=== PATIENT | female | born 1985 | race Caucasian/White ===

== ENCOUNTER → 2016-06-20 | Outpatient (CLI) | payer BC | END | disposition home or self-care (01) | LOC: C.PAPS 16:05 | PROVIDERS: ATTEND Obstetrics & Gynecology | DX: Z01.419 Encounter for gynecological examination (general) (routine) without abnormal findings (principal) ==

== ENCOUNTER → 2017-06-26 | Outpatient (CLI) | payer BC | END | disposition home or self-care (01) | LOC: C.PAPS 16:03 | PROVIDERS: ATTEND Physician Assistant | DX: Z01.419 Encounter for gynecological examination (general) (routine) without abnormal findings (principal) ==

== ENCOUNTER 2021-10-27 22:18 | Inpatient (IN) ==
--- NOTE | 2021-10-27 22:58 | History & Physical Report ---
Date of Service October 27, 2021 Assessment & Plan (1) Uterine contractions: (2) 39 weeks gestation of : Plan no evidence of active labor. fhts categ 1. will reeval in 2hr for labor progress. History of Present Illness Chief Complaint: contractions Primary Care Provider: Andrea Cm DO 35yo at 39wks ega presents to L&D with above cc. Called with painful ctx q 3min at home. No rom. No vb. +FM PNC uncomplicated PNL rh pos, ri, gbs neg OBH: g1 Allergies Allergy/AdvReac Type Severity Reaction Status Date / Time No Known Allergies Allergy Verified 10/21/21 09:46 Home Medications Medication Instructions Recorded Confirmed Type prenat.vits,monster,kye-tnqz-jjaon 1 tab PO DAILY 04/02/21 10/27/21 History Patient History Medical History (Updated 10/27/21 @ 22:56 by Megan Graf MD, FACOG) BRCA2 positive Surgical History (Updated 10/10/21 @ 11:27 by Ariella Garcia MD) H/O breast biopsy H/O discectomy History of right salpingo-oophorectomy open Family History (Updated 10/04/19 @ 11:54 by Lio Winn) Aunt Breast cancer Grandmother (Maternal) Colorectal cancer Sister BRCA gene positive Social History (Updated 03/22/21 @ 14:12 by Dee JONES RN) Smoking Status: Never smoker Hx Alcohol Use: No Hx Substance Use: No Preferred Language: Lithuanian Communication Ability: Effective Medical Lab Technician Required: No Beliefs That Will Affect Care: None marital status: Single marital status details: Juan Diego Mata (36) [phone] Current Living Situation: Spouse Current Living Situation Comment: [employer] current occupational status: employed current occupation: [employer] Other Information That Helps Us Care for You: No Feels Safe at Home: Yes Safety Concerns: Feels Safe At This Time Assistive Devices: Contacts Review of Systems as per Subjective / HPI Physical Exam Constitutional: WD/WN, vitals as above Neurologic: grossly normal Psychiatric: A+Ox3, euthymic affect Genitourinary: Manual OB Exam: + cervical dilation (2-3), + cervical effacement 90% and + station -2 OB Exam Monitor Tracing: + external FHT monitor used, + external uterine monitor used (q2-3), + category I and + normal FHT variability [facility] & Data ([facility]) Vital Signs (Past 12 Hours) Vital Signs Temp Pulse Resp BP 10/27/21 22:35 98.4 F 107 H 18 150/80 H 10/27/21 22:42 107 H 174/80 H 10/27/21 22:31 107 H 150/80 H Coding Level of Care Code None Diagnoses Uterine contractions O47.9 39 weeks gestation of Z3A.39
[2021-10-28] MEDS ORDERED: OXYTOCIN 30 UNITS/500 ML BAG IV PRN ×2 (03:24→09:30)
[2021-10-28] MEDS: LACTATED RINGER'S 1,000 ML IV PRN ×4 (03:45→18:23)
[2021-10-28] MEDS ORDERED: fentaNYL citrate 100 MCG/2 ML VIAL ONE (03:51)
[2021-10-28] MEDS ORDERED: BUPIVACAINE 0.25% 30 ML VIAL ONE (03:51)
[2021-10-28] MEDS ORDERED: LIDOCAINE 2%/EPINEPHRINE 1:200,000 20 ML SDV ONE (03:51)
[2021-10-28] MEDS ORDERED: SODIUM CHLORIDE 0.9% INJ 10 ML VIAL ONE (03:51)
[2021-10-28] MEDS ORDERED: ePHEDrine sulfate 50 MG/ML AMP ONE (03:51)
[2021-10-28] MEDS ORDERED: fentaNYL 2MCG/ML ROPIVACAINE 1.25MG/ML 100 ML BAG EPI ONE (03:52)
[2021-10-28 03:54] LABS: Hematocrit (blood only) 32.4 % (34.1-44.9); Hemoglobin 10.7 g/dl (12.0-16.0); Mean Corpuscular Hemoglobin 28.1 pg (25.0-34.0); Mean Platelet Volume 11.7 fL (9.4-12.3); Platelet Count 265 K/uL (130-400); RDW Coefficient of Variation 14.4 % (11.5-14.5); RDW Standard Deviation 44.2 fL (36.4-46.3); Red Blood Count 3.81 M/uL (3.93-5.22); White Blood Count 13.78 K/ul (4.8-10.8)
--- NOTE | 2021-10-28 04:15 | Labor Progress Brief Note ---
Date of Service October 28, 2021 Subjective still with painful ctx. cx now 3-4 cm. desires epidural Assessment & Plan (1) 39 weeks gestation of : (2) Active labor at term: Plan will plan epidural and then arom. good cx change. regular labor pattern Admission and Anticipated Discharge Date Admission Date: October 28, 2021 Physical Exam Constitutional: WD/WN, vitals as above Genitourinary: Manual OB Exam: + cervical dilation (3-4cm) OB Exam Monitor Tracing: + external FHT monitor used, + external uterine monitor used (q3-4), + category I, + normal FHT variability and + early decelerations present Results & Data ([facility]) Vital Signs (Past 12 Hours) Vital Signs Temp Pulse Resp BP 10/27/21 22:35 98.4 F 107 H 18 150/80 H 10/28/21 03:48 106 H 127/79 10/27/21 23:11 99 H 136/66 10/27/21 22:42 107 H 174/80 H 10/27/21 22:31 107 H 150/80 H Coding Level of Care Code None Diagnoses 39 weeks gestation of Z3A.39 Active labor at term
[2021-10-28] MEDS ORDERED: NALOXONE HCL 0.4 MG/1 ML VIAL/CARP IV PRN (04:23)
[2021-10-28] MEDS ORDERED: NALOXONE HCL 1 MG in SODIUM CHLORIDE 0.9% 1000ML 1,000 ML IV PRN (04:23)
[2021-10-28] MEDS ORDERED: ePHEDrine sulfate 50 MG/ML AMP IV PRN (04:23)
[2021-10-28] MEDS ORDERED: NALBUPHINE HCL INJ 10 MG/ML AMP IV PRN (04:23)
[2021-10-28] MEDS ORDERED: diphenhydrAMINE 50 MG/ML VIAL IV PRN (04:23)
--- NOTE | 2021-10-28 04:23 | Anesthesiology Consultation ---
Date of Service October 28, 2021 Assessment & Plan ASA ASA2 Proposed Anesthesia Anesthesia Type: Labor Epidural Risk / Benefits Reviewed With: PT / POA / Parent / Guardian, Accepts Plan and Informed Consent Obtained History Height/Weight Height: 5 ft 5 in Weight: 73.936 kg Allergies Allergy/AdvReac Type Severity Reaction Status Date / Time No Known Allergies Allergy Verified 10/21/21 09:46 Medications Home Medications Medication Instructions Recorded Confirmed Last Taken prenat.vits,monster,fed-eeqp-gkcjs 1 tab PO DAILY 04/02/21 10/27/21 10/27/21 Active Medications Generic Name Dose Route Start Last Admin Trade Name Freq PRN Reason Stop Dose Admin Lactated Ringer's 1,000 mls @ 125 mls/hr 10/28/21 03:24 10/28/21 04:36 Lr IV 10/30/21 03:23 125 mls/hr .Q8H PRN Infusion L&D Protocol Protocol Past Medical History Medical History (Updated 10/28/21 @ 04:14 by Megan Graf MD, FACOG) BRCA2 positive Exercise / Class Metabolic Activity II 4-5 Yardwork/Stairs/Walk up hill Past Family History Family History (Updated 10/04/19 @ 11:54 by Lio Winn) Aunt Breast cancer Grandmother (Maternal) Colorectal cancer Sister BRCA gene positive Past Surgical History Surgical History (Updated 10/10/21 @ 11:27 by Ariella Garcia MD) H/O breast biopsy H/O discectomy History of right salpingo-oophorectomy open Past Anesthesia History No Hx of Anesthesia Complications and No Family Hx of Anesthesia Complications History of PONV No Hx of PONV and No Hx of Motion Sickness Social History Smoking Status: Never smoker Hx Alcohol Use: No Hx Substance Use: No Review of Systems denies fever/cough/ colds/ chest pain/ SOB/ TIAN denies TIAN Physical Exam Vital Signs Last Vital Signs Temp 36.8 C 10/28/21 03:48 Pulse 112 H 10/28/21 04:47 Resp 18 10/28/21 03:48 BP 131/64 10/28/21 04:47 Pulse Ox 98 10/28/21 04:47 ENMT Mouth: no TMJ abnormality and no dentition abnormality Thyromental Distance: > or= 3.5 Finger Breadths Mallampati Class: II Neck neck extension not limited Respiratory normal respiratory effort; no respiratory distress Auscultation: lungs clear to auscultation bilaterally Cardiovascular Rate/Rhythm: regular rate and regular rhythm Neurologic moves all extremities Psychiatric Orientation: alert and oriented x 3 Testing Laboratory Results 10/28/21 03:33
[2021-10-28] MEDS: ONDANSETRON INJ 2 MG/ML 2 ML VIAL IV PRN ×2 (06:47→17:35)
[2021-10-28] MEDS ORDERED: ACETAMINOPHEN 325 MG TAB PO STA (07:43)
[2021-10-28] MEDS: fentaNYL 2MCG/ML ROPIVACAINE 1.25MG/ML 100 ML BAG EPI PRN ×3 (12:14→21:29)
[2021-10-28] MEDS ORDERED: NURSING L&D Epidural Breakthrough Pain Update ONE (18:51)
[2021-10-28] MEDS ORDERED: LIDOCAINE 1% LOCAL 20 ML VIAL ONE (23:57)
[2021-10-29] MEDS ORDERED: PHYTONADIONE PED 1 MG/0.5ML AMP/SYRG ONE (00:16)
[2021-10-29] MEDS ORDERED: HEPATITIS B VACCINE RECOMBIN 10 MCG/0.5 ML VIAL IM ONE (00:16)
[2021-10-29] MEDS ORDERED: ERYTHROMYCIN OP OINT 1 GM PKT ONE (00:16)
[2021-10-29] MEDS ORDERED: OXYTOCIN 30 UNITS/500 ML BAG IV PRN (00:25)
[2021-10-29] MEDS ORDERED: HYDROCORTISONE ACETATE 25 MG SUPP PR PRN (00:25)
[2021-10-29] MEDS ORDERED: DIPHTHERIA/TETANUS/PERTUSSIS 0.5 ML SYR/VIAL IM ONE (00:25)
[2021-10-29] MEDS ORDERED: ACETAMINOPHEN 325 MG TAB PO PRN (00:25)
[2021-10-29] MEDS ORDERED: BENZOCAINE 20% AER SPR 82.5 GM CAN EXT PRN (00:25)
[2021-10-29] MEDS ORDERED: bisacodyL 10 MG SUPP PR PRN (00:25)
[2021-10-29] MEDS ORDERED: oxyCODONE/ACETAMINOPHEN 5mg/325mg TAB PO PRN (00:25)
--- NOTE | 2021-10-29 00:29 | Anesthesia Procedure Note ---
Date of Service October 29, 2021 Anesthesia Post Epidural Note Vital Signs Vital Signs: Temp Pulse Resp BP Pulse Ox 36.4 C L 121 H 20 112/64 100 10/28/21 21:10 10/29/21 00:14 10/28/21 23:30 10/29/21 00:14 10/29/21 00:13 Notes Mental Status: alert / awake / arousable and participated in evaluation Patient Amnestic to Procedure: No Nausea / Vomiting: adequately controlled Pain: adequately controlled Airway Patency, RR, SpO2: stable & adequate BP & HR: stable & adequate Hydration State: stable & adequate Neuraxial Anesthesia: sensory block is resolving Anesthetic Complications: no major complications apparent and Pt Satisfied with anesthetic care Epidural: Removed without complications and With tip intact
--- NOTE | 2021-10-29 00:55 | Delivery Summary ---
Vaginal Delivery Summary Date of Service October 29, 2021 Vaginal Delivery Summary VAVD and 1st Degree LAC Patient is a 35-year-old 1 P0 female EDC of 10/30/2021 who presented in active labor. She received effective epidural analgesia and required Pitocin augmentation of her labor. She progressed to complete slowly and then pushed for 2 hours bringing the vertex to +3 station. At this point because of maternal exhaustion, a vacuum assisted delivery was offered to the patient and her and verbal consent was obtained. After emptying the bladder for small amount of bloody urine, the vacuum was placed on the vertex and through 2 contractions was brought to [facility] for delivery of a viable male infant. After the head was delivered, there was a moderate shoulder dystocia and with hyperflexion of the hips the right shoulder delivered anteriorly followed by the left shoulder. The rest the was then delivered easily and placed on the mother's abdomen. There is meconium stained fluid following the delivery of the baby. There was poor respiratory effort at this point, after the cord was clamped and cut, the infant was taken to the baby bed for further attention and drying where he began to cry spontaneously. While trying to deliver the placenta the cord avulsed, and the placenta was manually removed from the uterus. Second sweep of the uterine cavity revealed some clot but no additional placental tissue. A first-degree vaginal tear was bleeding as was a right first-degree labial laceration and these were repaired with 3-0 chromic in usual fashion. 1% lidocaine was used to anesthetize this area more effectively. Estimated blood loss was 300 cc. bleeding was controlled with dilute Pitocin. Mother and infant were doing well after delivery although the was only made moving his right upper arm minimally. [facility] Vaginal Delivery Charge Delivery Type Details: VAVD and 1st Degree LAC
[2021-10-29] MEDS: IBUPROFEN 600 MG TAB PO PRN ×4 (01:11→21:29)
--- NOTE | 2021-10-29 06:52 | Obstetrical Progress Note ---
Date of Service <Romina CoburnTemo Ruiz DO - Last Filed: 10/29/21 06:52> October 29, 2021 Assessment & Plan <Romina WinnDO ramon - Last Filed: 10/29/21 06:52> (1) 39 weeks gestation of : - Feels overall well today. Eating well, voiding well, ambulating well - Pain well controlled with ibuprofen 600 mg Q4H PRN - OOB, ambulation, diet progression as tolerated - Vitals WNL, Hgb 10.7 - After discharge, 6 week follow up with Dr. Gisbon <Kyung Lott MD, FACOG - Last Filed: 10/29/21 07:52> (1) 39 weeks gestation of : Subjective <Romina WinnDO ramon - Last Filed: 10/29/21 06:52> Salome Dunn is a 35 yo female who is now PPD #1 following vacuum assisted vaginal delivery at 39 weeks. Reports feeling well this morning. Endorses abdominal cramping and 2/10 pain well managed on analgesics. Denies voiding. Tolerating meals overnight and able to ambulate some. Denies passing gas and no bowel movements. Some persistent lochia that she describes as mostly bleeding with some improvement this morning. Currently breast feeding. Review of Systems Denies fever, chills, sweats. Denies SOB, difficulty breathing, chest pain, palpitations, and chest pressure. Denies breast pain. Denies dysuria. Denies headache or changes in vision. Physical Exam <Romina CoburnTemo Ruiz DO - Last Filed: 10/29/21 06:52> General: Alert and oriented. No acute distress. CV: Regular rate and rhythm. No murmurs. Respiratory: CTA bilaterally. No rhonchi, wheezes, or crackles. No increased work of breathing. Abdomen: Positive bowel sounds. Soft, nontender, non distended. Uterus: Fundus firm and palpable 1 cm below the umbilicus. Lower extremities: No LE edema. No deep calf pain. Deanna's negative bilaterally. Results & Data ([facility]) <Romina CoburnTemo Ruiz DO - Last Filed: 10/29/21 06:52> Vital Signs (Past 12 Hours) Vital Signs Temp Pulse Pulse Resp BP Pulse Ox O2 Del Method 10/29/21 03:00 36.6 C 85 16 96 Room Air 10/29/21 02:15 102 H 18 117/56 L 10/29/21 01:45 96 H 18 127/67 10/29/21 01:15 18 10/29/21 01:00 101 H 18 10/29/21 00:45 101 H 18 10/29/21 00:30 103 H 18 10/29/21 00:15 103 H 18 10/29/21 02:04 102 H 117/56 L 10/29/21 01:59 90 118/61 10/29/21 01:45 96 H 127/67 10/29/21 01:14 107 H 135/62 10/29/21 01:00 101 H 136/61 10/29/21 00:45 102 H 149/61 H 10/29/21 00:31 103 H 145/75 H 10/29/21 00:14 121 H 112/64 10/29/21 00:13 117 H 100 10/29/21 00:12 116 H 92 10/29/21 00:08 114 H 100 10/28/21 23:30 20 10/28/21 23:30 20 10/29/21 00:03 110 H 100 10/29/21 00:00 112 H 139/65 10/28/21 23:58 114 H 100 10/28/21 23:53 93 10/28/21 23:53 113 H 10/28/21 23:53 114 H 100 10/28/21 23:48 113 H 98 10/28/21 23:43 144 H 97 10/28/21 23:38 122 H 97 10/28/21 23:33 123 H 95 10/28/21 23:28 138 H 97 10/28/21 23:00 20 10/28/21 23:00 20 10/28/21 22:30 18 10/28/21 22:30 18 10/28/21 23:23 129 H 97 10/28/21 23:18 107 H 97 10/28/21 23:15 106 H 137/67 10/28/21 23:13 124 H 99 10/28/21 23:08 108 H 93 10/28/21 23:03 114 H 91 10/28/21 22:58 111 H 90 10/28/21 22:53 114 H 89 L 10/28/21 22:48 123 H 87 L 10/28/21 22:45 110 H 126/60 10/28/21 22:43 119 H 97 10/28/21 22:42 114 H 93 10/28/21 22:38 110 H 98 10/28/21 22:33 118 H 99 10/28/21 22:28 133 H 95 10/28/21 22:25 120 H 91 10/28/21 22:23 117 H 99 10/28/21 22:19 116 H 91 10/28/21 22:18 116 H 97 10/28/21 22:17 126 H 127/59 L 10/28/21 22:13 113 H 97 10/28/21 22:08 114 H 99 10/28/21 22:00 18 10/28/21 22:00 18 10/28/21 22:03 114 H 98 10/28/21 21:58 141 H 92 10/28/21 21:53 132 H 95 10/28/21 21:48 130 H 97 10/28/21 21:46 129 H 133/64 10/28/21 21:43 135 H 100 10/28/21 21:38 121 H 100 10/28/21 21:36 114 H 90 10/28/21 21:10 36.4 C L 10/28/21 21:33 125 H 98 10/28/21 21:30 116 H 18 134/69 10/28/21 21:28 125 H 100 10/28/21 21:23 124 H 99 10/28/21 21:18 115 H 99 10/28/21 21:16 117 H 139/74 10/28/21 21:13 121 H 98 10/28/21 21:08 124 H 99 10/28/21 21:03 128 H 100 10/28/21 21:00 18 10/28/21 21:00 18 10/28/21 20:59 121 H 128/65 10/28/21 20:58 126 H 100 10/28/21 20:53 122 H 99 10/28/21 20:48 129 H 98 10/28/21 20:45 117 H 119/58 L 10/28/21 20:43 127 H 98 10/28/21 20:38 129 H 98 10/28/21 20:31 18 10/28/21 20:31 18 10/28/21 20:33 143 H 98 10/28/21 20:32 149 H 93 10/28/21 20:28 130 H 99 10/28/21 20:23 114 H 98 10/28/21 20:18 127 H 99 10/28/21 20:16 117 H 131/71 10/28/21 20:13 132 H 100 10/28/21 20:08 123 H 99 10/28/21 20:03 111 H 97 10/28/21 20:01 101 H 130/67 10/28/21 20:00 108 H 18 94 10/28/21 19:58 113 H 92 10/28/21 19:55 111 H 93 10/28/21 19:53 103 H 98 10/28/21 19:48 102 H 98 10/28/21 19:45 106 H 132/63 10/28/21 19:43 118 H 98 10/28/21 19:38 118 H 99 10/28/21 19:33 114 H 97 10/28/21 19:30 116 H 18 128/61 10/28/21 19:28 108 H 134/60 92 10/28/21 19:26 107 H 111/55 L 10/28/21 19:23 106 H 115/56 L 99 10/28/21 19:21 104 H 119/58 L 10/28/21 19:19 107 H 130/62 10/28/21 19:18 121 H 98 10/28/21 19:16 112 H 93 10/28/21 19:13 118 H 97 10/28/21 19:09 111 H 117/58 L 10/28/21 19:08 105 H 99 10/28/21 19:03 121 H 100 10/28/21 18:58 36.4 C L 109 H 18 97 10/28/21 18:55 96 H 118/56 L 10/28/21 18:53 102 H 99 <Kyung Lott MD, FACOG - Last Filed: 10/29/21 07:52> Co-Signing Physician Notes Resident Physician Supervision Note: I interviewed and examined the patient. Discussed with Dr. Ruiz and agree with findings and plan as documented in the note. Any exceptions or clarifications are listed here: [None] Documented By: Kyung Lott MD, FACOG Resident Activity Tracking <Romina Ruiz, DO - Last Filed: 10/29/21 06:52> Resident Involvement: Resident Care Provided Care Provided: OB Delivery
[2021-10-29] MEDS: DOCUSATE SODIUM 100 MG CAP PO SCH ×2 (08:18→20:19)
[2021-10-29] MEDS: PRENATAL VITAMIN 1 TAB PO SCH (08:18)
--- NOTE | 2021-10-30 05:23 | Obstetrical Progress Note ---
Date of Service <Romina CoburnTemo Ruiz DO - Last Filed: 10/30/21 06:26> October 30, 2021 Assessment & Plan <Romina Winnbakarimary DO - Last Filed: 10/30/21 06:26> (1) 39 weeks gestation of : Patient is PPD day 2 s/p vacuum assisted vaginal delivery and doing well. - Feels well today. Eating well, voiding well, ambulating well - Pain well controlled with ibuprofen 600 mg Q4H PRN - OOB, ambulation, diet progression as tolerated - Plan to discharge today - After discharge, 6 week follow up with [address]. Gibson <Ana M Gale, DO - Last Filed: 10/30/21 07:39> (1) 39 weeks gestation of : Subjective <Romina Perry Joseph, DO - Last Filed: 10/30/21 06:26> Salome Dunn is a 35 yo female who is now PPD #2 following vacuum assisted vaginal delivery at 39 weeks. Reports feeling well this morning. Endorses abdominal cramping and pain well managed on analgesics. Voiding well with no burning. Tolerating meals overnight and able to ambulate some. Has been passing gas but no bowel movements. Some persistent lochia with some improvement this morning. Currently breast feeding. Review of Systems Denies fever, chills, sweats. Denies SOB, difficulty breathing, chest pain, palpitations, and chest pressure. Denies breast pain. Denies dysuria. Denies headache or changes in vision. Physical Exam <Romina CoburnTemo Ruiz DO - Last Filed: 10/30/21 06:26> General: Alert and oriented. No acute distress. CV: Regular rate and rhythm. No murmurs. Respiratory: CTA bilaterally. No rhonchi, wheezes, or crackles. No increased work of breathing. Abdomen: Positive bowel sounds. Soft, nontender, non distended. Uterus: Fundus firm and palpable 3 cm below the umbilicus. Lower extremities: No LE edema. No deep calf pain. Deanna's negative bilaterally. Results & Data ([facility]) <Romina CoburnTemo Ruiz DO - Last Filed: 10/30/21 06:26> Vital Signs (Past 12 Hours) Vital Signs Temp Pulse Resp BP 10/30/21 03:00 36.7 C 71 16 109/67 10/29/21 23:00 36.7 C 71 18 100/61 10/29/21 20:00 36.5 C 80 18 109/69 <Ana M Gale, - Last Filed: 10/30/21 07:39> Co-Signing Physician Notes Resident Physician Supervision Note: I was present with Dr. Ruiz during the history and exam. I discussed the case with the resident and agree with the findings and plan as documented in the note. Any exceptions or clarifications are listed here: PPD#2 doing well. DC home today, followup in office 6w. Reviewed DC instructions. Documented By: Ana M Gale DO Resident Activity Tracking <Romina Ruiz, - Last Filed: 10/30/21 06:26> Resident Involvement: Resident Care Provided Care Provided: OB Delivery
[2021-10-30 06:13] LABS: Hematocrit (blood only) 25.1 % (34.1-44.9); Hemoglobin 8.1 g/dl (12.0-16.0); Mean Corpuscular Hemoglobin 28.1 pg (25.0-34.0); Mean Corpuscular Hgb Conc 32.3 g/dL (32.0-36.0); Mean Corpuscular Volume 87.2 fL (80.0-100.0); Mean Platelet Volume 11.3 fL (9.4-12.3); Platelet Count 156 K/uL (130-400); RDW Standard Deviation 47.7 fL (36.4-46.3); Red Blood Count 2.88 M/uL (3.93-5.22); White Blood Count 10.18 K/ul (4.8-10.8)
[2021-10-30] MEDS: PRENATAL VITAMIN 1 TAB PO SCH (08:37)
[2021-10-30] MEDS: DOCUSATE SODIUM 100 MG CAP PO SCH (08:37)
[2021-10-30] MEDS: IBUPROFEN 600 MG TAB PO PRN (08:37)
[2021-10-30] MEDS ORDERED: bisacodyL 5 MG TABEC PO SCH (20:00)
== END 2021-10-30 13:10 | disposition home or self-care (01) | DRG 807 ==
LOC: OPB 22:18 → 4S1 22:21 → 4E2 10-29 02:11

== ENCOUNTER 2024-10-26 07:45 | Inpatient (IN) ==
[2024-10-26] MEDS ORDERED: CALCIUM CARBONATE 500 MG CHEWABLE TAB PO PRN ×2 (08:15→21:00)
[2024-10-26] MEDS ORDERED: LIDOCAINE 1% LOCAL 20 ML VIAL INFIL PRN (08:15)
[2024-10-26] MEDS ORDERED: OXYTOCIN 30 UNITS/NSS 30 UNITS/500 ML BAG IV PRN (08:15)
[2024-10-26 09:09] LABS: Hematocrit (blood only) 31.4 % (37.0-47.0); Hemoglobin 10.5 g/dl (12.0-16.0); Mean Corpuscular Hemoglobin 27.6 pg (25.0-34.0); Mean Corpuscular Volume 82.4 fL (80.0-100.0); Platelet Count 178 K/uL (130-400); RDW Standard Deviation 49.3 fL (36.4-46.3); Red Blood Count 3.81 M/uL (4.20-5.40); White Blood Count 7.61 K/ul (4.8-10.8)
--- NOTE | 2024-10-26 09:24 | History & Physical Report ---
Date of Service October 26, 2024 Assessment & Plan (1) Encounter for induction of labor: Plan: Salome is a 38 y/o at 40w 2d presenting for induction of labor. is complicated by advanced maternal age. Hx of vacuum-assisted delivery due to maternal exhaustion and shoulder dystocia in a previous . Rogers balloon placed Pitocin ordered and started Epidural, if requested FHT monitoring - category I IV fluids I&Os and vitals monitoring. Admission and Anticipated Discharge Date Admission Date: October 26, 2024 History of Present Illness Chief Complaint: induction of labor Primary Care Provider: Andrea Cm DO Salome Dunn is a 38 y/o at 40w 1d with an ANGIE 10/23/24 determined by LMP presents today for induction of labor. is complicated by advanced maternal age. She does have a history vacuum-assisted delivery due to maternal exhausted and moderate shoulder dystocia with previous . External FHT and external uterine monitors used; Category I tracing; normal FHT variability. Had regular appointments with OB. OB Labs: Blood Type O Positive 04/14/24 Antibody Screen NEGATIVE 04/14/24 Hgb 11.3 g/dl (12.0-16.0) L 08/30/24 Hct 34.9 % (37.0-47.0) L 08/30/24 MCV 82.6 fL (80.0-100.0) 04/14/24 Plt Count 283 K/uL (130-400) 04/14/24 Rubella IgG Antibody Equivocal (Immune) L 04/14/24 RPR Nonreactive (Nonreactive) 06/11/23 Treponema pallidum Ab Negative (Negative) 08/03/24 Hep Bs Antigen Negative (Negative) 04/14/24 Hep Bs Antigen NON-REACTIVE (NON-REACTIVE) 06/11/23 Hepatitis C Antibody Negative (Negative) 04/14/24 Hepatitis C Ab (EIA) NON-REACTIVE (NON-REACTIVE) 06/11/23 HIV 1&2 Ab/P24 Ag 4thGn Negative (Negative) 04/14/24 HIV (1&2) Ag & Ab Conf NON-REACTIVE (NON-REACTIVE) 06/11/23 Glucose 1 Hr 50 gm 150 mg/dl (70-130) H 08/03/24 Maternal Serum AFP 42.2 ng/mL 05/10/24 OB Optional Labs: Chlamydia trachomatis RNA Not Detected (NotDetected) 04/14/24 Neisseria gonorrhoeae RNA Not Detected (NotDetected) 04/14/24 Thyroid Stimulating Hormone (TSH) 1.370 uIu/ml (0.300-4.500) 08/26/23 Alpha Fetoprotein Triple Screen SEE NOTE 05/10/24 Labs Reviewed: [facility] 14-negative prior --mln cfdna-low risk--mln msafp neg, smp Allergies Allergy/AdvReac Type Severity Reaction Status Date / Time No Known Allergies Allergy Verified 10/25/24 11:02 Home Medications Medication Instructions Recorded Confirmed Type PNV no.[id number] 1 tab PO TID PRN Other 06/10/23 10/26/24 History [ Gummies] Patient History Medical History Peritonsillar abscess BRCA2 positive History of miscarriage, currently Seasonal allergies History of chicken pox Surgical History H/O discectomy History of right salpingo-oophorectomy H/O breast biopsy Family History Aunt Breast cancer Grandmother (Maternal) Colorectal cancer Sister BRCA gene positive Denies family history of Ovarian cancer Social History Smoking Status: Never smoker Second Hand Exposure: No; Do You Dip or Chew Tobacco: No; Hx Alcohol Use: No Hx Substance Use: No Preferred Language: [place] Communication Ability: Effective Visual Impairment: No Limitations Operations Manager Required: No Beliefs That Will Affect Care: None marital status: Single marital status details: Abby Mata (39) [phone] Current Living Situation: Family Current Living Situation Comment: lives with Fiance, child- 2 dogs current occupational status: other current occupation: homemaker How many Children do You have: 1 Other Information That Helps Us Care for You: No Feels Safe at Home: Yes Safety Concerns: Feels Safe At This Time Assistive Devices: Contacts and Glasses Physical Exam Physical Exam: General: Alert, oriented. No acute distress. Cardiac: Regular rate and rhythm, no murmurs/rubs/gallops. Respiratory: Clear to auscultation bilaterally a/p, no wheezes/rales/rhonchi. No increased work of breathing. Symmetrical chest rise. No respiratory distress. Abdomen: Normal to inspection. Soft, gravid; Pelvic: Dilation 1 cm; Effacement 80%; Station -[address] Gale Lower Extremities: No lower extremity edema or swelling. No deep calf pain. Deanna's negative bilaterally Constitutional: WD/WN, vitals as above Results & Data Vital Signs (Past 12 Hours) Vital Signs Temp Pulse Resp BP 10/26/24 08:00 84 134/66 10/26/24 07:53 36.7 C 20 Supervising Physician Co-Signing Physician Notes Resident Physician Supervision Note: I interviewed and examined the patient. Discussed with Dr. Alexander and agree with findings and plan as documented in the note. Any exceptions or clarifications are listed here: admit to L&D, rogers bulb placed and filled to 35cc. Pitocin. Documented By: Ana M Gale DO
[2024-10-26] MEDS: OXYTOCIN 30 UNITS/NSS 30 UNITS/500 ML BAG IV PRN (09:31)
[2024-10-26] MEDS: LACTATED RINGER'S 1,000 ML IV PRN (09:31)
--- NOTE | 2024-10-26 13:23 | Anesthesiology Consultation ---
Date of Service October 26, 2024 Assessment & Plan Chart Review Chart Review: Acceptable Risk for Labor Epidural Consults Requested none History Height/Weight Height: 5 ft 5 in Weight: 81.193 kg Allergies Allergy/AdvReac Type Severity Reaction Status Date / Time No Known Allergies Allergy Verified 10/25/24 11:02 Medications Home Medications Medication Instructions Recorded Confirmed Last Taken PNV no.[id number] 1 tab PO TID PRN Other 06/10/23 10/26/24 10/25/24 22:00 [ Gummies] Active Medications Generic Name Dose Route Start Last Admin Trade Name Freq PRN Reason Stop Dose Admin Oxytocin 30 units in 500 mls @ 5 mls/hr 10/26/24 08:15 10/26/24 11:00 Pitocin 30 Units/Nss IV 10/28/24 08:14 0.3 units/hr .Q24H PRN 5 mls/hr Labor Induction/Augmentation Titration Protocol 0.3 UNITS/HR Lactated Ringer's 1,000 mls @ 125 mls/hr 10/26/24 08:15 10/26/24 13:05 Lr IV 10/28/24 08:14 999 mls/hr .Q8H PRN Infusion L&D Protocol Protocol Past Medical History Medical History Peritonsillar abscess BRCA2 positive History of miscarriage, currently Seasonal allergies History of chicken pox Past Family History Family History Aunt Breast cancer Grandmother (Maternal) Colorectal cancer Sister BRCA gene positive Denies family history of Ovarian cancer Past Surgical History Surgical History H/O discectomy History of right salpingo-oophorectomy H/O breast biopsy Social History Smoking Status: Never smoker Do You Dip or Chew Tobacco: No Hx Alcohol Use: No Hx Substance Use: No substance use type: does not use Physical Exam Vital Signs Last Vital Signs Temp 36.9 C 10/26/24 11:29 Pulse 91 H 10/26/24 12:33 Resp 20 10/26/24 11:29 BP 137/72 10/26/24 12:33 Testing Laboratory Results 10/26/24 08:41
[2024-10-26] MEDS ORDERED: diphenhydrAMINE 50 MG/ML VIAL IV PRN (13:24)
[2024-10-26] MEDS ORDERED: BUPIVACAINE 0.25% PF 30 ML VIAL EPI PRN (13:24)
[2024-10-26] MEDS ORDERED: NALBUPHINE HCL INJ 10 MG/ML AMP IV PRN ×2 (13:24→20:59)
[2024-10-26] MEDS ORDERED: fentANYL 2 MCG/ML BUPIVacaine 0.125%-NSS 100ML BAG EPI PRN (13:24)
[2024-10-26] MEDS ORDERED: SODIUM CHLORIDE 0.9% PF INJ 10 ML VIAL EPI PRN (13:24)
[2024-10-26] MEDS ORDERED: LIDOCAINE 2% MPF LOCAL 5 ML VIAL EPI PRN (13:24)
[2024-10-26] MEDS ORDERED: ROPIVACAINE 0.5% PF 5 MG/ML 20 ML VIAL EPI PRN (13:24)
[2024-10-26] MEDS ORDERED: NALOXONE HCL 0.4 MG/1 ML VIAL/CARP IV PRN ×2 (13:24→20:59)
[2024-10-26] MEDS ORDERED: NALOXONE HCL 1 MG in SODIUM CHLORIDE 0.9% 1,000 ML IV PRN ×2 (13:24→20:59)
[2024-10-26] MEDS: fentANYL 2 MCG/ML BUPIVacaine 0.125%-NSS 100ML BAG ONE (13:42)
[2024-10-26] MEDS: BUPIVACAINE 0.25% PF 30 ML VIAL ONE (13:46)
[2024-10-26] MEDS: LIDOCAINE 2%/EPINEPHRINE 1:200,000 20 ML PF ONE (13:46)
[2024-10-26] MEDS: BUPIVACAINE 0.25% PF 30 ML VIAL EPI STA (16:22)
[2024-10-26] MEDS: LIDOCAINE 2%/EPINEPHRINE 1:200,000 20 ML PF EPI STA (16:23)
[2024-10-26] MEDS: SODIUM CHLORIDE 0.9% PF INJ 10 ML VIAL EPI STA (16:23)
--- NOTE | 2024-10-26 17:40 | Labor Progress Brief Note ---
Date of Service October 26, 2024 Subjective FHT Cat 1 [place] Q 2 SVE 5-6/80/-3 AROM pink tinged fluid. Assessment & Plan Admission and Anticipated Discharge Date Admission Date: October 26, 2024 Results & Data Vital Signs (Past 12 Hours) Vital Signs Temp Pulse Resp BP Pulse Ox 10/26/24 17:34 98 H 93 10/26/24 17:32 117 H 100 10/26/24 17:27 100 H 99 10/26/24 17:22 79 100 10/26/24 17:17 90 116/56 L 100 10/26/24 17:12 77 100 10/26/24 17:07 91 H 100 10/26/24 17:02 87 100 10/26/24 17:01 73 102/53 L 10/26/24 16:57 73 100 10/26/24 16:52 76 100 10/26/24 16:47 77 100 10/26/24 16:45 80 113/58 L 10/26/24 16:42 76 100 10/26/24 16:37 80 100 10/26/24 16:32 80 100 10/26/24 16:30 73 18 103/55 L 10/26/24 16:27 73 100 10/26/24 16:22 78 100 10/26/24 16:17 80 100 10/26/24 16:16 74 109/58 L 10/26/24 16:12 74 100 10/26/24 16:07 81 100 10/26/24 16:02 84 100 10/26/24 16:00 20 10/26/24 16:00 20 10/26/24 15:57 69 100 10/26/24 15:52 68 100 10/26/24 15:47 70 100 10/26/24 15:46 64 113/59 L 10/26/24 15:42 67 100 10/26/24 15:37 68 100 10/26/24 15:32 74 100 10/26/24 15:30 72 20 117/57 L 10/26/24 15:27 76 100 10/26/24 15:22 68 100 10/26/24 15:17 77 99 10/26/24 15:12 92 H 100 10/26/24 15:07 89 97 10/26/24 15:02 99 H 99 10/26/24 15:00 112 H 18 103/57 L 10/26/24 14:57 107 H 99 10/26/24 14:52 97 H 99 10/26/24 14:47 102 H 99 10/26/24 14:45 106 H 112/58 L 10/26/24 14:42 100 H 97 10/26/24 14:37 88 100 10/26/24 14:32 78 100 10/26/24 14:31 94 H 116/55 L 10/26/24 14:30 18 10/26/24 14:30 18 10/26/24 14:27 83 100 10/26/24 14:25 36.7 C 10/26/24 14:22 90 100 10/26/24 14:17 97 H 99 10/26/24 14:12 92 H 99 10/26/24 14:11 93 H 118/66 10/26/24 14:07 85 99 10/26/24 14:06 79 123/67 10/26/24 14:05 20 10/26/24 14:05 20 10/26/24 14:02 75 119/70 98 10/26/24 14:00 20 10/26/24 14:00 20 10/26/24 13:57 74 99 10/26/24 13:55 81 112/68 10/26/24 13:53 82 115/68 10/26/24 13:52 99 10/26/24 13:52 78 10/26/24 13:52 78 113/71 10/26/24 13:50 20 10/26/24 13:50 20 10/26/24 13:49 71 125/60 10/26/24 13:47 73 99 10/26/24 13:46 71 126/62 10/26/24 13:43 71 20 126/65 10/26/24 13:42 76 98 10/26/24 13:41 78 129/70 10/26/24 13:37 82 99 10/26/24 13:32 100 10/26/24 13:32 97 H 10/26/24 13:32 79 131/79 10/26/24 12:33 91 H 137/72 10/26/24 11:31 76 121/74 10/26/24 11:29 20 10/26/24 11:29 36.9 C 20 10/26/24 10:32 83 122/64 10/26/24 09:29 77 132/64 10/26/24 08:00 84 134/66 10/26/24 07:53 36.7 C 20 Coding Level of Care Code None
--- NOTE | 2024-10-26 19:13 | History & Physical Bridge Note ---
Date of Service October 26, 2024 History & Physical Bridge Note I have examined the patient, reviewed the History & Physical and in the interval since the performance of the History & Physical I have noted the following changes of clinical significance: FHT Cat 1 with early decelerations with Q2 ctx over the past 1.5h, re-examined cervix, /2, cervix has become swollen. Discussed findings with patient, she has been concerned about shoulder dystocia and large baby given her prior shoulder dystocia history - she would like to proceed with delivery by section - which I think is reasonable given this history. Will proceed to section for suspected LGA fetus and d/t history of shoulder dystocia. Reviewed informed consent, patient agreeable.
[2024-10-26] MEDS ORDERED: LACTATED RINGER'S 1,000 ML IV SCH (19:15)
[2024-10-26] MEDS ORDERED: AZITHROMYCIN 500 MG/255 ML BAG IV ONE (19:20)
[2024-10-26] MEDS ORDERED: ACETAMINOPHEN 500 MG TAB PO STA (19:20)
[2024-10-26] MEDS ORDERED: AZITHROMYCIN 500 MG/255 ML BAG IV SCH (19:30)
[2024-10-26] MEDS: ACETAMINOPHEN 500 MG TAB PO SCH (19:30)
[2024-10-26] MEDS: CITRIC ACID/SODIUM CITRATE 15 ML UDC PO SCH (19:31)
[2024-10-26] MEDS ORDERED: LIDOCAINE 2%/EPINEPHRINE 1:200,000 20 ML PF ONE ×2 (19:36→19:53)
[2024-10-26] MEDS ORDERED: OXYTOCIN 10 UNITS/ML VIAL ONE ×2 (20:04→20:12)
[2024-10-26] MEDS ORDERED: PHENYLEPHRINE 100MCG/ML 5ML SYR ONE ×2 (20:04→20:36)
[2024-10-26] MEDS ORDERED: MoRPHine SULFATE PF 1 MG/ML 10 ML AMP/VIAL ONE (20:09)
--- NOTE | 2024-10-26 20:42 | Operative Report ---
Post Operative Report Pre & Post Diagnosis Operation Date: 10/26/24 19:30 Pre: Large for gestational age fetus, history of shoulder dystocia, failure to progress in labor Post: same I identified the patient and participated in the time-out.: Yes Procedure Operation Date: 10/26/24 19:30 Primary Low Transverse Section Surgeon Ana M Gale, DO Cylinder Valve Repairer Betsey Henry RN Quantitative Blood Loss (QBL) 367 Findings Consistent with Post-Op Diagnosis Viable male , Apgars 9/9. Weight 9lbs 6oz. Specimens placenta, cord blood, cord gas. Drains rogers clear yellow Anesthesia Type Labor Epidural Complications none Disposition Accompanied Patient To Recovery: Yes Disposition: L&D Indications 38yo @ 40 3, h/o shoulder dystocia, suspected large for gestational age baby, attempted IOL but baby remained with a high station despire AROM and early FHT decelerations. She then elected for a section. Description of Procedure The patient was seen in her labor and delivery room, risks benefits and alternatives to surgery were reviewed. Informed consent obtained. Questions were answered. She was taken to the operating room, epidural anesthesia was redosed. She was then prepared and draped in the usual sterile fashion in the supine position with a leftward tilt. Timeout was confirmed. Ancef and azithromycin were given. A Pfannenstiel skin incision was made with a scalpel, and carried through to the underlying layer of fascia. Fascia was nicked at midline, and this incision was extended bilaterally. The superior aspect of the fascial incision was grasped with Tunde clamps x2, elevated off the underlying rectus abdominis muscles, and dissected sharply and bluntly. In similar fashion, the inferior aspect of the fascial incision was dissected. The rectus abdominis muscles were , and the peritoneum was entered bluntly digitally. This was extended bilaterally. The bladder flap was taken down carefully using Metzenbaum scissors. Using a new scalpel, a low transverse uterine incision was created. Clear amniotic fluid noted. The infant was delivered from a cephalic presentation. The head delivered, followed by shoulders and body. Spontaneous cry on the field. The cord was doubly clamped and cut, and the was handed off to the waiting front desk monitor. A segment was retained for cord gases. Cord blood was obtained. The placenta was delivered spontaneously intact. The uterus was exteriorized, and cleared of all clots and debris. The hysterotomy incision was reapproximated using 0 Vicryl in a running locked stitch. A second layer of the same suture was used to imbricate the incision. Posterior uterus was evaluated and normal. The uterus was returned to the abdomen, and gutters were cleared of clots and debris. Excellent hemostasis was observed. The fascial incision was reapproximated using 0 Vicryl in a running stitch. The subcutaneous tissue was irrigated, and reapproximated using 2-0 plain gut in a running stitch. The skin was reapproximated using 4-0 Vicryl in a running subcuticular stitch. Steri-Strips and a bandage were applied. The patient tolerated the procedure well, and will be taken to the recovery area in stable and good condition. I attest to the content of the Intraoperative Record and any orders documented therein. Any exceptions are noted below. OB Procedure Charges 58081
[2024-10-26] MEDS ORDERED: KETOROLAC 30 MG/ML VIAL ONE (20:51)
[2024-10-26] MEDS ORDERED: LACTATED RINGER'S 500 ML IV PRN (20:59)
[2024-10-26] MEDS ORDERED: HYDROmorphone INJ 0.5 MG/0.5 ML SYR IV PRN (20:59)
[2024-10-26] MEDS ORDERED: MoRPHine SULFATE 2 MG/ML CARP IV PRN (20:59)
[2024-10-26] MEDS ORDERED: NALOXONE HCL 0.08 MG in SYRINGE 1.8 ML IV PRN (20:59)
[2024-10-26] MEDS ORDERED: MEPERIDINE HCL 25 MG/ML CARP/VIAL IV PRN (20:59)
[2024-10-26] MEDS ORDERED: PROMETHAZINE 6.25 MG/50.25 ML BAG IV PRN (20:59)
[2024-10-26] MEDS ORDERED: ONDANSETRON INJ 2 MG/ML 2 ML VIAL IV PRN ×2 (20:59→21:00)
[2024-10-26] MEDS ORDERED: MAGNESIUM HYDROXIDE SUSP 30 ML UDC PO PRN (21:00)
[2024-10-26] MEDS ORDERED: DC INTRASPINAL MORPHINE SCH (21:00)
[2024-10-26] MEDS ORDERED: HYDROCORTISONE ACETATE 25 MG SUPP PR PRN (21:00)
[2024-10-26] MEDS ORDERED: DIPHTHER/TETAN/PERTUS Vaccine (Tdap, Adol/Adult) 0.5mL IM ONE (21:00)
[2024-10-26] MEDS ORDERED: SENNA 8.6 MG TAB PO PRN (21:00)
[2024-10-26] MEDS: KETOROLAC 30 MG/ML VIAL IV SCH (21:00)
[2024-10-26] MEDS ORDERED: SODIUM CHLORIDE 0.9% 1,000 ML IV SCH (21:00)
[2024-10-26] MEDS ORDERED: BENZOCAINE 20% SPRY 85 APPLN/85 GM CAN EXT PRN (21:00)
[2024-10-26] MEDS ORDERED: NO NARCOTICS OR SEDATIVES SCH (21:00)
[2024-10-26] MEDS ORDERED: KETOROLAC 30 MG/ML VIAL IV PRN (21:01)
[2024-10-26] MEDS ORDERED: ACETAMINOPHEN 1,000 MG/100 ML VIAL IV PRN (21:01)
[2024-10-26 21:40] LABS: Base Excess Cord Venous Blood -2.9 mEq/L (-7.7-1.9); Cord Venous Blood PO2 < 20 mmHg (14.1-43.3); O2 Saturation Cord Venous Bld < 60.0 % (<68)
[2024-10-26 21:41] LABS: Base Excess Cord Arterial Bld -3.5 mEq/L (-9-1.8); CO2 Cord Arterial Blood 62 mmHg (39.1-73.5); HCO3 Cord Arterial Blood 25 mmol/L (19.7-28.5); Oxygen Sat Cord Arterial Blood < 60.0 % (<60); PO2 Cord Arterial Blood < 20 mmHg (4.1-31.7); pH Cord Arterial Blood 7.22 (7.1-7.38)
--- NOTE | 2024-10-26 22:00 | Anesthesia Procedure Note ---
Date of Service October 26, 2024 Anesthesia Post Epidural Note Vital Signs Vital Signs: Temp Pulse Resp BP Pulse Ox 36.8 C 86 16 116/56 L 100 10/26/24 19:12 10/26/24 21:56 10/26/24 19:12 10/26/24 21:52 10/26/24 21:56 Pain Intensity Right Abdomen: Pain Intensity: 5 Notes Mental Status: alert / awake / arousable Nausea / Vomiting: adequately controlled Pain: adequately controlled Airway Patency, RR, SpO2: stable & adequate BP & HR: stable & adequate Hydration State: stable & adequate Neuraxial Anesthesia: was administered and sensory block is resolving Anesthetic Complications: no major complications apparent and Pt Satisfied with anesthetic care Epidural: Removed without complications and With tip intact
--- NOTE | 2024-10-26 22:00 | Anesthesiology Progress Note ---
Date of Service October 26, 2024 Anesthesia Post Procedure Vital Signs Vital Signs: Temp Pulse Resp BP Pulse Ox 10/26/24 21:56 86 100 10/26/24 21:52 74 116/56 L 10/26/24 21:51 75 100 10/26/24 21:46 79 99 10/26/24 21:42 76 115/57 L 10/26/24 21:41 79 99 10/26/24 21:36 77 99 10/26/24 21:33 82 117/58 L 10/26/24 21:31 93 H 98 10/26/24 21:26 91 H 99 10/26/24 21:24 90 128/60 10/26/24 21:21 94 H 99 10/26/24 21:16 92 H 99 10/26/24 21:12 84 81/61 L 10/26/24 21:11 93 H 99 10/26/24 21:06 98 H 98 10/26/24 21:03 117 H 80/53 L 10/26/24 21:01 100 H 99 10/26/24 20:56 106 H 99 10/26/24 20:51 111 H 98 10/26/24 20:48 106 H 99/46 L 10/26/24 20:46 109 H 99 10/26/24 19:37 123 H 99 10/26/24 19:32 123 H 98 10/26/24 19:31 125 H 149/62 H 10/26/24 19:27 103 H 98 10/26/24 19:22 105 H 99 10/26/24 19:17 98 H 99 10/26/24 19:12 16 10/26/24 19:12 36.8 C 111 H 16 134/73 100 10/26/24 19:07 100 H 99 10/26/24 19:02 108 H 100 10/26/24 19:00 18 10/26/24 19:00 18 10/26/24 18:57 93 H 100 10/26/24 18:52 93 H 100 10/26/24 18:47 92 H 100 10/26/24 18:42 86 100 10/26/24 18:37 100 H 100 10/26/24 18:32 98 H 100 10/26/24 18:30 76 18 112/65 10/26/24 18:27 87 100 10/26/24 18:22 81 100 10/26/24 18:17 78 100 10/26/24 18:16 73 111/60 10/26/24 18:12 76 100 10/26/24 18:07 78 100 10/26/24 18:02 77 109/53 L 100 10/26/24 18:00 20 10/26/24 18:00 20 10/26/24 17:57 79 99 10/26/24 17:52 84 99 10/26/24 17:47 104 H 99 10/26/24 17:45 101 H 124/57 L 10/26/24 17:42 97 H 100 10/26/24 17:37 94 H 99 10/26/24 17:34 98 H 93 10/26/24 17:32 117 H 100 10/26/24 17:30 20 10/26/24 17:30 36.6 C 20 10/26/24 17:27 100 H 99 10/26/24 17:22 79 100 10/26/24 17:17 90 116/56 L 100 10/26/24 17:12 77 100 10/26/24 17:07 91 H 100 10/26/24 17:02 87 100 10/26/24 17:01 73 102/53 L 10/26/24 17:00 20 10/26/24 17:00 20 10/26/24 16:57 73 100 10/26/24 16:52 76 100 10/26/24 16:47 77 100 10/26/24 16:45 80 113/58 L 10/26/24 16:42 76 100 10/26/24 16:37 80 100 10/26/24 16:32 80 100 10/26/24 16:30 73 18 103/55 L 10/26/24 16:27 73 100 10/26/24 16:22 78 100 10/26/24 16:17 80 100 10/26/24 16:16 74 109/58 L 10/26/24 16:12 74 100 10/26/24 16:07 81 100 10/26/24 16:02 84 100 10/26/24 16:00 20 10/26/24 16:00 20 10/26/24 15:57 69 100 10/26/24 15:52 68 100 10/26/24 15:47 70 100 10/26/24 15:46 64 113/59 L 10/26/24 15:42 67 100 10/26/24 15:37 68 100 10/26/24 15:32 74 100 10/26/24 15:30 72 20 117/57 L 10/26/24 15:27 76 100 10/26/24 15:22 68 100 10/26/24 15:17 77 99 10/26/24 15:12 92 H 100 10/26/24 15:07 89 97 10/26/24 15:02 99 H 99 10/26/24 15:00 112 H 18 103/57 L 10/26/24 14:57 107 H 99 10/26/24 14:52 97 H 99 10/26/24 14:47 102 H 99 10/26/24 14:45 106 H 112/58 L 10/26/24 14:42 100 H 97 10/26/24 14:37 88 100 10/26/24 14:32 78 100 10/26/24 14:31 94 H 116/55 L 10/26/24 14:30 18 10/26/24 14:30 18 10/26/24 14:27 83 100 10/26/24 14:25 36.7 C 10/26/24 14:22 90 100 10/26/24 14:17 97 H 99 10/26/24 14:12 92 H 99 10/26/24 14:11 93 H 118/66 10/26/24 14:07 85 99 10/26/24 14:06 79 123/67 10/26/24 14:05 20 10/26/24 14:05 20 10/26/24 14:02 75 119/70 98 10/26/24 14:00 20 10/26/24 14:00 20 10/26/24 13:57 74 99 10/26/24 13:55 81 112/68 10/26/24 13:53 82 115/68 10/26/24 13:52 99 10/26/24 13:52 78 10/26/24 13:52 78 113/71 10/26/24 13:50 20 10/26/24 13:50 20 10/26/24 13:49 71 125/60 10/26/24 13:47 73 99 10/26/24 13:46 71 126/62 10/26/24 13:43 71 20 126/65 10/26/24 13:42 76 98 10/26/24 13:41 78 129/70 10/26/24 13:37 82 99 10/26/24 13:32 100 10/26/24 13:32 97 H 10/26/24 13:32 79 131/79 10/26/24 12:33 91 H 137/72 10/26/24 11:31 76 121/74 10/26/24 11:29 20 10/26/24 11:29 36.9 C 20 10/26/24 10:32 83 122/64 10/26/24 09:29 77 132/64 10/26/24 08:00 84 134/66 10/26/24 07:53 36.7 C 20 Pain Intensity Right Abdomen: Pain Intensity: 5 Transfer of Care Handoff Completed per policy Notes Mental Status: alert / awake / arousable and participated in evaluation Nausea / Vomiting: adequately controlled Pain: adequately controlled Airway Patency, RR, SpO2: stable & adequate BP & HR: stable & adequate Hydration State: stable & adequate Neuraxial Anesthesia: was administered and sensory block is resolving Anesthetic Complications: no major complications apparent and Pt Satisfied with anesthetic care
[2024-10-26] MEDS: OXYTOCIN 20 UNITS/LR 1,002 ML IV SCH (23:16)
[2024-10-26] MEDS: DOCUSATE SODIUM 100 MG CAP PO SCH (23:16)
[2024-10-26] MEDS: SIMETHICONE 80 MG CHEW PO SCH (23:16)
[2024-10-27 03:25] VITALS: RESP 16
[2024-10-27] MEDS: ACETAMINOPHEN 325 MG TAB PO SCH (03:59)
[2024-10-27] MEDS: diphenhydrAMINE 50 MG/ML VIAL IV PRN ×2 (04:01→07:54)
[2024-10-27] MEDS ORDERED: AZITHROMYCIN 500 MG/255 ML BAG IV SCH (06:00)
[2024-10-27] MEDS ORDERED: CITRIC ACID/SODIUM CITRATE 15 ML UDC PO SCH (06:00)
[2024-10-27] MEDS ORDERED: ACETAMINOPHEN 500 MG TAB PO SCH (06:00)
[2024-10-27 06:07] LABS: Hematocrit (blood only) 28.7 % (37.0-47.0); Hemoglobin 9.4 g/dl (12.0-16.0); Immature Granulocytes # (auto) 0.05 K/uL (0.01-0.20); Immature Granulocytes % (auto) 0.4 %; Mean Corpuscular Hemoglobin 27.5 pg (25.0-34.0); Mean Corpuscular Volume 83.9 fL (80.0-100.0); Platelet Count 170 K/uL (130-400); RDW Standard Deviation 50.3 fL (36.4-46.3); Red Blood Count 3.42 M/uL (4.20-5.40); White Blood Count 11.15 K/ul (4.8-10.8)
--- NOTE | 2024-10-27 06:24 | Obstetrical Progress Note ---
Date of Service October 27, 2024 Assessment & Plan (1) examination following delivery: Plan: Salome Dunn is a 38 y/o post- day 1 s/p . was complicated by LGA, hx of shoulder dystocia, and failure to pr ogress. Continue post- care Encourage ambulation and Pain controlled with ibuprofen Hgb stable Anticipate home discharge tomorrow, follow up with Dr. Gale in 6 weeks. Admission and Anticipated Discharge Date Admission Date: October 26, 2024 Anticipated date of discharge: 10/28/24 Supervising Physician Co-Signing Physician Notes Resident Physician Supervision Note: I was present with Dr. Alexander during the history and exam. I discussed the case with the resident and agree with the findings and plan as documented in the note. Any exceptions or clarifications are listed here: POD#1 doing well, routine postop care today. Documented By: Ana M Gale, DO Subjective Salome Dunn is a 38 y/o post- day 1 s/p . was complicated by LGA, hx of shoulder dystocia, and failure to progress. Ambulation: ambulating normally Voiding: no voiding problems Passing Gas:: Yes Diet Tolerance:: regular diet Lochia:: Small Feeding Type:: breast feeding Current Pain Level: 1/10 Resting comfortably this AM in NAD. Denies FUNEZ, CP, SOB, N/V/D, LE pain/swelling. Review of Systems Review of Systems: All systems reviewed & are unremarkable except as noted in HPI & below Physical Exam Physical Exam: General: patient resting comfortably, NAD, non-toxic in appearance, AA&O x 4, answers questions appropriately. Skin: warm, dry, intact HEENT: NC/AT, anicteric sclera, conjunctiva without injection, moist mucus membranes. Heart: +S1/S2, regular, no m/r/g Lungs: equal air entry bilaterally, no rales/rhonchi/wheezes Abd: +BS, soft, NT/ND, uterine fundus firm at umbilicus, caesarean incision C/D/I. Ext: warm, no clubbing/cyanosis or edema, Deanna's neg. Neuro: nonfocal, patient AA&O x 4, speech intact, no facial droop, moving all extremities on command. Constitutional: WD/WN, vitals as above Results & Data Vital Signs (Past 12 Hours) Vital Signs Temp Pulse Pulse Resp BP BP Pulse Ox 10/27/24 06:00 16 99 10/27/24 05:00 16 98 10/27/24 04:00 36.8 C 86 16 151/70 H 99 10/27/24 04:00 16 99 10/27/24 03:00 16 99 10/27/24 02:00 18 99 10/27/24 01:00 14 95 10/27/24 00:00 37.5 C 75 16 139/78 99 10/27/24 00:00 16 99 10/26/24 23:06 93 H 98 10/26/24 23:05 88 90 10/26/24 23:01 78 97 10/26/24 23:00 16 10/26/24 22:58 83 111/60 10/26/24 22:56 78 96 10/26/24 22:51 82 97 10/26/24 22:46 78 98 10/26/24 22:43 81 119/69 10/26/24 22:41 76 98 10/26/24 22:36 79 98 10/26/24 22:31 80 100 10/26/24 22:28 77 116/57 L 10/26/24 22:26 78 99 10/26/24 22:21 77 98 10/26/24 22:16 84 99 10/26/24 22:12 72 115/61 10/26/24 22:11 80 99 10/26/24 22:06 80 100 10/26/24 22:03 73 108/56 L 10/26/24 22:01 82 99 10/26/24 22:00 36.8 C 16 10/26/24 21:56 86 100 10/26/24 21:52 74 116/56 L 10/26/24 21:51 75 100 10/26/24 21:46 79 99 10/26/24 21:42 76 115/57 L 10/26/24 21:41 79 99 10/26/24 21:36 77 99 10/26/24 21:33 82 117/58 L 10/26/24 21:31 93 H 98 10/26/24 21:26 91 H 99 10/26/24 21:24 90 128/60 10/26/24 21:21 94 H 99 10/26/24 21:16 92 H 99 10/26/24 21:12 84 81/61 L 10/26/24 21:11 93 H 99 10/26/24 21:06 98 H 98 10/26/24 21:03 117 H 80/53 L 10/26/24 21:01 100 H 99 10/26/24 21:00 36.8 C 15 10/26/24 20:56 106 H 99 10/26/24 20:51 111 H 98 10/26/24 20:48 106 H 99/46 L 10/26/24 20:46 109 H 99 10/26/24 19:37 123 H 99 10/26/24 19:32 123 H 98 10/26/24 19:31 125 H 149/62 H 10/26/24 19:27 103 H 98 10/26/24 19:22 105 H 99 10/26/24 19:17 98 H 99 10/26/24 19:12 16 10/26/24 19:12 36.8 C 111 H 16 134/73 100 10/26/24 19:07 100 H 99 10/26/24 19:02 108 H 100 10/26/24 19:00 18 10/26/24 19:00 18 10/26/24 18:57 93 H 100 10/26/24 18:52 93 H 100 10/26/24 18:47 92 H 100 10/26/24 18:42 86 100 10/26/24 18:37 100 H 100 10/26/24 18:32 98 H 100 10/26/24 18:30 76 18 112/65 10/26/24 18:27 87 100 10/26/24 18:22 81 100 O2 Del Method 10/27/24 06:00 10/27/24 05:00 10/27/24 04:00 Room Air 10/27/24 04:00 10/27/24 03:00 10/27/24 02:00 10/27/24 01:00 10/27/24 00:00 Room Air 10/27/24 00:00 10/26/24 23:06 10/26/24 23:05 10/26/24 23:01 10/26/24 23:00 10/26/24 22:58 10/26/24 22:56 10/26/24 22:51 10/26/24 22:46 10/26/24 22:43 10/26/24 22:41 10/26/24 22:36 10/26/24 22:31 10/26/24 22:28 10/26/24 22:26 10/26/24 22:21 10/26/24 22:16 10/26/24 22:12 10/26/24 22:11 10/26/24 22:06 10/26/24 22:03 10/26/24 22:01 10/26/24 22:00 10/26/24 21:56 10/26/24 21:52 10/26/24 21:51 10/26/24 21:46 10/26/24 21:42 10/26/24 21:41 10/26/24 21:36 10/26/24 21:33 10/26/24 21:31 10/26/24 21:26 10/26/24 21:24 10/26/24 21:21 10/26/24 21:16 10/26/24 21:12 10/26/24 21:11 10/26/24 21:06 10/26/24 21:03 10/26/24 21:01 10/26/24 21:00 10/26/24 20:56 10/26/24 20:51 10/26/24 20:48 10/26/24 20:46 10/26/24 19:37 10/26/24 19:32 10/26/24 19:31 10/26/24 19:27 10/26/24 19:22 10/26/24 19:17 10/26/24 19:12 10/26/24 19:12 10/26/24 19:07 10/26/24 19:02 10/26/24 19:00 10/26/24 19:00 10/26/24 18:57 10/26/24 18:52 10/26/24 18:47 10/26/24 18:42 10/26/24 18:37 10/26/24 18:32 10/26/24 18:30 10/26/24 18:27 10/26/24 18:22
[2024-10-27] MEDS: MoRPHine SULFATE PF 1 MG/ML 10 ML AMP/VIAL INT SPINAL ONE (07:43)
[2024-10-27] MEDS: SODIUM CHLORIDE 0.9% PF INJ 10 ML VIAL ONE (07:43)
[2024-10-27] MEDS: FERROUS SULFATE 325 MG TAB PO SCH (07:51)
[2024-10-27] MEDS: PRENATAL VITAMIN 1 TAB PO SCH (07:51)
[2024-10-27] MEDS ORDERED: LACTATED RINGER'S 1,000 ML IV SCH (13:30)
[2024-10-27] MEDS ORDERED: diphenhydrAMINE Capsule 25 MG CAP PO PRN (15:00)
[2024-10-27] MEDS ORDERED: PROMETHAZINE 12.5 MG/50.5 ML BAG IV PRN (15:00)
[2024-10-27] MEDS ORDERED: HYDROmorphone INJ 0.5 MG/0.5 ML SYR IV PRN (15:00)
[2024-10-27] MEDS: NALOXONE HCL 0.08 MG in SYRINGE 1.8 ML IV PRN (15:55)
[2024-10-27] MEDS ORDERED: MoRPHine SULFATE PF 1 MG/ML 10 ML AMP/VIAL INT SPINAL ONE (16:15)
[2024-10-27] MEDS ORDERED: KETOROLAC 30 MG/ML VIAL IV PRN (20:46)
[2024-10-27] MEDS: MEASLES, MUMPS & RUBELLA VIRUS VACCINE (MMR) 0.5ML VIAL SQ ONE (21:00)
[2024-10-27] MEDS: IBUPROFEN 600 MG TAB PO SCH (21:08)
[2024-10-28 06:15] LABS: Hematocrit (blood only) 27.5 % (37.0-47.0); Hemoglobin 9.0 g/dl (12.0-16.0)
--- NOTE | 2024-10-28 06:19 | Obstetrical Progress Note ---
Date of Service October 28, 2024 Assessment & Plan (1) examination following delivery: Plan: Salome Dunn is a 38 y/o post- day 2 s/p . was complicated by LGA, hx of shoulder dystocia, and failure to pr ogress. Continue post- care Encourage ambulation and Pain controlled with ibuprofen Hgb stable Home discharge today, follow up with Dr. Gale in 6 weeks. Admission and Anticipated Discharge Date Admission Date: October 26, 2024 Anticipated date of discharge: 10/28/24 Supervising Physician Co-Signing Physician Notes Resident Physician Supervision Note: I interviewed and examined the patient. Discussed with Dr. Alexander and agree with findings and plan as documented in the note. Any exceptions or clarifications are listed here: Doing well. Plans d/c today. Instructions give. Documented By: Mechelle Richardson MD, FACOG Subjective Salome Dunn is a 38 y/o post- day 2 s/p . was complicated by LGA, hx of shoulder dystocia, and failure to progress. Ambulation: ambulating normally Voiding: no voiding problems Passing Gas:: Yes Diet Tolerance:: regular diet Lochia:: Small Feeding Type:: breast feeding Current Pain Level: 4/10 Resting comfortably this AM in NAD. Denies FUNEZ, CP, SOB, N/V/D, LE pain/swelling. Review of Systems Review of Systems: All systems reviewed & are unremarkable except as noted in HPI & below Physical Exam Physical Exam: General: patient resting comfortably, NAD, non-toxic in appearance, AA&O x 4, answers questions appropriately. Skin: warm, dry, intact HEENT: NC/AT, anicteric sclera, conjunctiva without injection, moist mucus membranes. Heart: +S1/S2, regular, no m/r/g Lungs: equal air entry bilaterally, no rales/rhonchi/wheezes Abd: +BS, soft, NT/ND, uterine fundus tender and firm below umbilicus, caesarean incision C/D/I. Ext: warm, no clubbing/cyanosis or edema, Deanna's neg. Neuro: nonfocal, patient AA&O x 4, speech intact, no facial droop, moving all extremities on command. Constitutional: WD/WN, vitals as above Results & Data Vital Signs (Past 12 Hours) Vital Signs Temp Pulse Resp BP Pulse Ox O2 Del Method 10/28/24 00:05 36.9 C 66 16 127/64 98 Room Air 10/27/24 21:00 Room Air 10/27/24 21:00 36.9 C 80 16 128/67 97 Room Air
[2024-10-28 08:31] VITALS: BP 125/51; PULSE 67; TEMP 97.5; O2SAT 97
[2024-10-28] MEDS ORDERED: IBUPROFEN 600 MG TAB PO PRN (20:46)
[2024-10-29] MEDS ORDERED: ACETAMINOPHEN 325 MG TAB PO PRN (02:46)
--- NOTE | 2024-10-31 10:45 | Discharge Summary ---
Date of Service October 31, 2024 Admission HPI Per Admitting Provider Salome Dunn is a 38 y/o at 40w 1d with an ANGIE 10/23/24 determined by LMP presents today for induction of labor. is complicated by advanced maternal age. She does have a history vacuum-assisted delivery due to maternal exhausted and moderate shoulder dystocia with previous . External FHT and external uterine monitors used; Category I tracing; normal FHT variability. Had regular appointments with OB. OB Labs: Blood Type O Positive 04/14/24 Antibody Screen NEGATIVE 04/14/24 Hgb 11.3 g/dl (12.0-16.0) L 08/30/24 Hct 34.9 % (37.0-47.0) L 08/30/24 MCV 82.6 fL (80.0-100.0) 04/14/24 Plt Count 283 K/uL (130-400) 04/14/24 Rubella IgG Antibody Equivocal (Immune) L 04/14/24 RPR Nonreactive (Nonreactive) 06/11/23 Treponema pallidum Ab Negative (Negative) 08/03/24 Hep Bs Antigen Negative (Negative) 04/14/24 Hep Bs Antigen NON-REACTIVE (NON-REACTIVE) 06/11/23 Hepatitis C Antibody Negative (Negative) 04/14/24 Hepatitis C Ab (EIA) NON-REACTIVE (NON-REACTIVE) 06/11/23 HIV 1&2 Ab/P24 Ag 4thGn Negative (Negative) 04/14/24 HIV (1&2) Ag & Ab Conf NON-REACTIVE (NON-REACTIVE) 06/11/23 Glucose 1 Hr 50 gm 150 mg/dl (70-130) H 08/03/24 Maternal Serum AFP 42.2 ng/mL 05/10/24 OB Optional Labs: Chlamydia trachomatis RNA Not Detected (NotDetected) 04/14/24 Neisseria gonorrhoeae RNA Not Detected (NotDetected) 04/14/24 Thyroid Stimulating Hormone (TSH) 1.370 uIu/ml (0.300-4.500) 08/26/23 Alpha Fetoprotein Triple Screen SEE NOTE 05/10/24 Labs Reviewed: Horizon 14-negative prior --mln cfdna-low risk--mln msafp neg, smp Discharge Data Consultations 10/26/24 08:15 Consult Anesthesiology Stat Procedures Performed Operation Date: 10/26/24 19:30 Actual Procedures p Section in LD for live male child at 2004.(Bilateral) - Ana M Gale, Hospital Course (1) examination following delivery: Salome Dunn is a 38 y/o post- day 2 s/p . was complicated by LGA, hx of shoulder dystocia, and failure to progress. Continue post- care Encourage ambulation and Pain controlled with ibuprofen Hgb stable Home discharge today, follow up with Dr. Gale in 6 weeks. Supervising Physician Co-Signing Physician Notes Resident Physician Supervision Note: I interviewed and examined the patient. Discussed with Dr. Alexander and agree with findings and plan as documented in the note. Any exceptions or clarifications are listed here: Doing well. Plans d/c today. Instructions give. Documented By: Mechelle Richardson MD, FACOG Coding Level of Care Code None Diagnoses examination following delivery Z39.2
== END 2024-10-28 11:50 | disposition home or self-care (01) | DRG 788 ==
LOC: 4S1 07:45 → 4E1 10-27 00:19
DX: Z87.59 Personal history of other complications of pregnancy, childbirth and the puerperium; Z37.0 Single live birth; Z3A.40 40 weeks gestation of pregnancy; O62.9 Abnormality of forces of labor, unspecified; O36.63X0 Maternal care for excessive fetal growth, third trimester, not applicable or unspecified